=== PATIENT | male | born 1970 | race Caucasian/White ===

== ENCOUNTER → 2017-08-02 | Outpatient (CLI) | payer OTHER ==
[~2017-08-02] MED LIST: CLARITIN PO
--- NOTE | 2017-08-02 20:05 | Diagnostic Imaging Report ---
Left knee MRI without contrast. History: Knee pain. Effusion. Decreased range of motion. Comparison: None. Technique: Multiplanar multi-sequence MRI of the knee without contrast. Findings: Medial compartment: No meniscal tear. Articular cartilage fraying and fissuring in the medial compartment best seen on coronal series 5 image 14. The medial collateral ligament complex is intact. Lateral compartment: No meniscal tear or cartilage abnormality. The LCL complex is normal. Intercondylar notch: The ACL and PCL are intact. Patellofemoral compartment: No chondromalacia or patellar dislocation. Extensor mechanism: Postsurgical change to the inferior patellar tendon. The quadriceps and patellar tendons are intact. Other findings: There is a joint effusion and synovitis. There is no acute fracture, subluxation or avascular necrosis. Small Burch's cyst. 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 No meniscal tear, collateral ligament tear or cruciate ligament tear. Signed by: Dr. Yousuf Rizo M.D. on 08/02/2017 8:01 PM
== END ==
LOC: MRI 16:22
PROVIDERS: ATTEND Orthopaedic Surgery
DX: M25.562 Pain in left knee (principal); M25.462 Effusion, left knee; M22.42 Chondromalacia patellae, left knee

== ENCOUNTER 2018-03-12 10:56 | Emergency (ER) | payer OTHER ==
[~2018-03-12] VITALS: Ht 185.4 cm; Wt 133.8 kg
[2018-03-12] MEDS ORDERED: KETOROLAC TROMETHAMINE 30 MG/ML VIAL IV STA (11:23)
[2018-03-12] MEDS ORDERED: ONDANSETRON HCL INJ 2 MG/ML VIAL IV STA (11:23)
[2018-03-12] MEDS ORDERED: LORAZEPAM INJ 2 MG/ML VIAL IV ONE ×2 (11:30→12:15)
[2018-03-12] MEDS ORDERED: MORPHINE SULFATE 5 MG/ML VIAL IV ONE (11:45)
[2018-03-12] MEDS: SODIUM CHLORIDE 0.9% 1000ML 1,000 ML IV SCH ×2 (12:00→12:51)
[2018-03-12] MEDS ORDERED: MORPHINE SULFATE 2 MG/ML SYR IV STA (12:33)
--- OUTSIDE RECORDS SUMMARY | 2018-03-21 11:25 | XMS REPORT ---
Author Author [facility] Address Unknown Phone Unavailable Care Team Providers Care Music Worker Name Role Phone MARY ANGEL Unavailable Unavailable Problems This patient has no known problems. Allergies, Adverse Reactions, Alerts This patient has no known allergies or adverse reactions. Medications This patient has no known medications. Results Test Description Test Time Test Comments Text Results Atomic Results Result Comments MRI KNEE LEFT WO [place] [address] Patient Name: DARINEL SARABIA MR #: [id number] : 1970 Age/Sex: 47/M Req #: [id number] Adm Physician: Ordered by: MARY ANGEL DO Report #: [id number] Location: MRI Room/Bed: Procedure: [id number] MRI/MRI KNEE LEFT WO Exam Date: Exam Time: REPORT STATUS: Signed Left knee MRI without contrast. History: Knee pain. Effusion. Decreased range of motion. Comparison: None. Technique: Multiplanar multi-sequence MRI of the knee without contrast. Findings: Medial compartment: No meniscal tear. Articular cartilage fraying and fissuring in the medial compartment best seen on coronal series 5 image 14. The medial collateral ligament complex is intact. Lateral compartment: No meniscal tear or cartilage abnormality. The LCL complex is normal. Intercondylar notch: The ACL and PCL are intact. Patellofemoral compartment: No chondromalacia or patellar dislocation. Extensor mechanism: Postsurgical change to the inferior patellar tendon. The quadriceps and patellar tendons are intact. Other findings: There is a joint effusion and synovitis. There is no acute fracture, subluxation or avascular necrosis. Small Burch's cyst. 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 No meniscal tear, collateral ligament tear or cruciate ligament tear. Signed by: Dr. Yousuf Rizo M.D. on 08/02/2017 8:01 PM Dictated By: YOUSUF RIZO MD, MD 00 Transcribed By: WIL on 08/02/172000 COPY TO: MARY ANGEL DO
== END 2018-03-12 13:50 | disposition home or self-care (01) ==
LOC: FSED 10:56
DX: M54.6 Pain in thoracic spine (principal); M62.830 Muscle spasm of back; M62.838 Other muscle spasm; F17.210 Nicotine dependence, cigarettes, uncomplicated
CPT/HCPCS: 80053; 82553; 84484; 85025; 85379; 93005; 99284; J1885; J2060; J2270 ×2; J2405

== ENCOUNTER 2022-02-27 16:23 | Observation (INO) | payer OTHER ==
[~2022-02-27] VITALS: Ht 185.4 cm; Wt 140.6 kg
[2022-02-27] MEDS ORDERED: SODIUM CHLORIDE 0.9% 1000ML 1,000 ML IV STA (16:37)
[2022-02-27] MEDS ORDERED: ASPIRIN 81 MG CHEW TAB PO ONE ×2 (16:45→20:45)
[2022-02-27] MEDS ORDERED: METOPROLOL TARTRATE INJ 1 MG/ML VIAL IV ONE (16:45)
[2022-02-27 16:56] LABS: BASOPHILS # (AUTO) 0.1 (0.0-0.1); BASOPHILS % 0.7 % (0.0-1.0); EOSINOPHILS # (AUTO) 0.2 (0.0-0.4); HEMATOCRIT 50.9 % (38.2-49.6); HEMOGLOBIN 16.9 g/dL (14.0-18.0); LYMPHOCYTES # (AUTO) 2.7 (1.0-3.2); LYMPHOCYTES % 24.1 % (18.0-39.1); MEAN CORPUSCULAR HEMOGLOBIN 30.1 pg (28-32); MEAN CORPUSCULAR HGB CONC 33.2 g/dL (31-35); MEAN CORPUSCULAR VOLUME 90.6 fL (81-99); MONOCYTES # (AUTO) 1.3 (0.2-0.8); MONOCYTES % 11.5 % (4.4-11.3); NEUTROPHILS # (AUTO) 6.8 (2.1-6.9); NEUTROPHILS % 61.3 % (38.7-80.0); PLATELET COUNT 284 x10e3/uL (140-360); RED BLOOD COUNT 5.62 x10e6/uL (4.3-5.7); RED CELL DISTRIBUTION WIDTH 14.6 % (11.7-14.4)
[2022-02-27 17:07] LABS: INR 0.91; PROTHROMBIN TIME 13.1 seconds (11.9-14.5)
[2022-02-27 17:08] LABS: PARTIAL THROMBOPLASTIN TIME 29.2 seconds (23.8-35.5)
[2022-02-27] MEDS ORDERED: METOPROLOL TARTRATE 25 MG TAB PO ONE (17:15)
[2022-02-27 17:16] LABS: ALANINE AMINOTRANSFERASE 27 IU/L (0-55); ALBUMIN 4.5 g/dL (3.5-5.0); ALBUMIN/GLOBULIN RATIO 1.3 (0.8-2.0); ALKALINE PHOSPHATASE 83 IU/L (40-150); ANION GAP 19.7 mmol/L (8-16); BLOOD UREA NITROGEN 11 mg/dL (7-26); BUN/CREATININE RATIO 10 (6-25); CALCIUM 9.7 mg/dL (8.4-10.2); CARBON DIOXIDE 19 mmol/L (22-29); CHLORIDE 106 mmol/L (98-107); CREATINE KINASE 151 IU/L (30-200); CREATININE, SERUM 1.09 mg/dL (0.72-1.25); GLUCOSE 86 mg/dL (74-118); LIPASE 44 U/L (8-78); MAGNESIUM 2.4 MG/DL (1.3-2.1); POTASSIUM 3.7 mmol/L (3.5-5.1); SODIUM 141 mmol/L (136-145)
[2022-02-27 17:35] LABS: THYROID STIMULATING HORMONE 2.484 uIU/mL (0.350-4.940)
[2022-02-27 17:37] LABS: AMPHETAMINES SCREEN,URINE NEGATIVE (NEGATIVE); BENZODIAZEPINES SCREEN,URINE NEGATIVE (NEGATIVE); PHENCYCLIDINE SCREEN,URINE NEGATIVE (NEGATIVE)
[2022-02-27 17:38] LABS: CLARITY,URINE HAZY (CLEAR); COLOR,URINE YELLOW (YELLOW); KETONES,URINE NEGATIVE (NEGATIVE); LEUKOCYTE ESTERASE ,URINE NEGATIVE (NEGATIVE); NITRITE,URINE NEGATIVE (NEGATIVE); PROTEIN,URINE DIPSTICK NEGATIVE (NEGATIVE); URINE UROBILINOGEN 0.2 mg/dL (0.2 - 1)
[2022-02-27 17:39] LABS: BACTERIA,URINE FEW /HPF; EPITHELIAL CELLS,URINE FEW /LPF; RBC,URINE 0-5 /HPF (0-5); WBC,URINE (MAN) 0-5 /HPF (0-5)
[2022-02-27] MEDS ORDERED: IOPAMIDOL 370 MG/ML 100 ML INFUS..BTL INJ ONE ×2 (18:47→19:44)
[2022-02-27 20:00] VITALS: BP 145/93
[2022-02-27] MEDS ORDERED: ONDANSETRON HCL INJ 2MG/ML 2ML 2 MG/ML VIAL IV PRN (20:45)
[2022-02-27 21:44] VITALS: BP 145/93
[2022-02-27 21:50] VITALS: BP 145/93
[2022-02-27 22:04] VITALS: BP 145/93
[2022-02-27] MEDS ORDERED: XOLAIR75 MG/0.5 (22:59)
[2022-02-28] VITALS (7 sets, daily range): BP systolic 105–129; BP diastolic 64–83
[2022-02-28 01:51] LABS: CREATINE KINASE MB 1.8 ng/mL (0-5.0)
[2022-02-28] MEDS ORDERED: OMEPRAZOLE40 MG PO (03:06)
[2022-02-28] MEDS ORDERED: MULTI-VITAMIN1 EACH PO (04:13)
[2022-02-28 05:21] LABS: BASOPHILS # (AUTO) 0.1 (0.0-0.1); BASOPHILS % 0.8 % (0.0-1.0); EOSINOPHILS # (AUTO) 0.3 (0.0-0.4); EOSINOPHILS % 3.1 % (0.0-6.0); HEMATOCRIT 43.9 % (38.2-49.6); HEMOGLOBIN 14.3 g/dL (14.0-18.0); LYMPHOCYTES # (AUTO) 1.9 (1.0-3.2); LYMPHOCYTES % 22.9 % (18.0-39.1); MEAN CORPUSCULAR HEMOGLOBIN 29.9 pg (28-32); MEAN CORPUSCULAR HGB CONC 32.6 g/dL (31-35); MEAN CORPUSCULAR VOLUME 91.8 fL (81-99); MONOCYTES # (AUTO) 1.2 (0.2-0.8); MONOCYTES % 14.1 % (4.4-11.3); NEUTROPHILS # (AUTO) 4.9 (2.1-6.9); NEUTROPHILS % 58.7 % (38.7-80.0); PLATELET COUNT 239 x10e3/uL (140-360); RED BLOOD COUNT 4.78 x10e6/uL (4.3-5.7); RED CELL DISTRIBUTION WIDTH 14.8 % (11.7-14.4)
[2022-02-28 05:41] LABS: ALBUMIN 3.5 g/dL (3.5-5.0); ALBUMIN/GLOBULIN RATIO 1.4 (0.8-2.0); ANION GAP 11.8 mmol/L (8-16); CALCIUM 8.6 mg/dL (8.4-10.2); CREATININE, SERUM 1.02 mg/dL (0.72-1.25); POTASSIUM 3.8 mmol/L (3.5-5.1)
[2022-02-28 06:06] LABS: CREATINE KINASE MB 1.8 ng/mL (0-5.0)
[2022-02-28 10:53] LABS: CHOL/HDL RATIO 3.3 (3.9-4.7)
[2022-02-28 13:47] LABS: CREATINE KINASE 79 IU/L (30-200)
[2022-03-01] VITALS (8 sets, daily range): BP systolic 119–132; BP diastolic 72–90
[2022-03-01 05:48] LABS: BASOPHILS # (AUTO) 0.1 (0.0-0.1); BASOPHILS % 0.7 % (0.0-1.0); EOSINOPHILS # (AUTO) 0.3 (0.0-0.4); EOSINOPHILS % 3.3 % (0.0-6.0); HEMATOCRIT 43.1 % (38.2-49.6); HEMOGLOBIN 14.2 g/dL (14.0-18.0); LYMPHOCYTES # (AUTO) 1.9 (1.0-3.2); LYMPHOCYTES % 24.7 % (18.0-39.1); MEAN CORPUSCULAR HEMOGLOBIN 29.5 pg (28-32); MEAN CORPUSCULAR HGB CONC 32.9 g/dL (31-35); MEAN CORPUSCULAR VOLUME 89.4 fL (81-99); MONOCYTES % 12.9 % (4.4-11.3); NEUTROPHILS # (AUTO) 4.5 (2.1-6.9); NEUTROPHILS % 58.1 % (38.7-80.0); PLATELET COUNT 236 x10e3/uL (140-360); RED BLOOD COUNT 4.82 x10e6/uL (4.3-5.7); RED CELL DISTRIBUTION WIDTH 14.9 % (11.7-14.4)
[2022-03-01 06:12] LABS: ALBUMIN 3.4 g/dL (3.5-5.0); ALBUMIN/GLOBULIN RATIO 1.2 (0.8-2.0); ANION GAP 11.7 mmol/L (8-16); CALCIUM 8.4 mg/dL (8.4-10.2); CREATININE, SERUM 0.98 mg/dL (0.72-1.25); POTASSIUM 3.7 mmol/L (3.5-5.1)
[2022-03-01] MEDS ORDERED: REGADENOSON 0.4 MG/5 ML SYR IV ONE (12:19)
[2022-03-01] MEDS ORDERED: ONDANSETRON HCL 4 MG ORAL DISINTEGRATING TAB PO PRN (15:00)
== END 2022-03-01 15:39 | disposition home or self-care (01) ==
LOC: ER 16:30 → ERHOLD 20:33 → MED/SURG 21:40
DX: R00.2 Palpitations (principal); E66.01 Morbid (severe) obesity due to excess calories; Z68.41 Body mass index [BMI] 40.0-44.9, adult; K21.9 Gastro-esophageal reflux disease without esophagitis; Z72.89 Other problems related to lifestyle; R94.31 Abnormal electrocardiogram [ECG] [EKG]; Z98.84 Bariatric surgery status; Z88.1 Allergy status to other antibiotic agents; Z88.0 Allergy status to penicillin; Z87.891 Personal history of nicotine dependence; J45.909 Unspecified asthma, uncomplicated
CPT/HCPCS: 36415 ×3; 71045; 71260; 78452; 80053 ×3; 80061; 80307; 80320; 81001; 82550 ×2; 82553 ×2; 83690; 83735; 83880; 84443; 84484 ×2; 85025 ×3; 85379; 85610; 85730; 93005 ×2; 93017; 99284; A9502; C9113; G0378 ×3; J2785; J7030; Q9967; U0002

== ENCOUNTER → 2022-05-03 | Day surgery (SDC) | payer OTHER ==
[~2022-05-03] MED LIST changes: +CLARITIN10 MG PO; +GLUCAGON FOR INJ 1 MG VIAL ONE; +LIDOCAINE HCL 2% LOCAL INJ 5 ML SDV VIAL INJ ONE; +MIDAZOLAM HCL 2 MG/2 ML VIAL ONE; +MULTI-VITAMIN1 EACH PO; +OMEPRAZOLE40 MG PO; +PROPOFOL IV EMULSION 10 MG/ML 20 ML VIAL ONE; +PROTONIX20 MG PO; +XOLAIR150 MG IM; +XOLAIR75 MG/0.5
[2022-05-03 12:00] VITALS: BP 108/80
[2022-05-03 13:01] LABS: ALBUMIN 4.2 g/dL (3.5-5.0); ALBUMIN/GLOBULIN RATIO 1.4 (0.8-2.0); CALCIUM 9.1 mg/dL (8.4-10.2); CREATININE, SERUM 1.12 mg/dL (0.72-1.25)
== END | disposition home or self-care (01) ==
LOC: OR 08:10 → MERGE 14:30 → EDBD 14:30
PROVIDERS: ATTEND Internal Medicine Gastroenterology
DX: K29.70 Gastritis, unspecified, without bleeding (principal); D12.2 Benign neoplasm of ascending colon; D12.5 Benign neoplasm of sigmoid colon; I85.00 Esophageal varices without bleeding; K57.30 Diverticulosis of large intestine without perforation or abscess without bleeding; K28.9 Gastrojejunal ulcer, unspecified as acute or chronic, without hemorrhage or perforation; K64.8 Other hemorrhoids; K62.5 Hemorrhage of anus and rectum; K21.9 Gastro-esophageal reflux disease without esophagitis; Z98.84 Bariatric surgery status; Z71.3 Dietary counseling and surveillance; G47.33 Obstructive sleep apnea (adult) (pediatric); J30.2 Other seasonal allergic rhinitis; M26.609 Unspecified temporomandibular joint disorder, unspecified side; Z71.89 Other specified counseling; Z88.1 Allergy status to other antibiotic agents; Z88.0 Allergy status to penicillin; Z01.810 Encounter for preprocedural cardiovascular examination; Z68.41 Body mass index [BMI] 40.0-44.9, adult; Z87.891 Personal history of nicotine dependence
CPT/HCPCS: 36415; 43239; 45380; 45385; 80053; 93005; C9113; J1610; J2001; J2250; J2704; 45378

== ENCOUNTER → 2022-05-12 | Outpatient (CLI) | payer OTHER ==
[~2022-05-12] MED LIST changes: -GLUCAGON FOR INJ 1 MG VIAL ONE; -LIDOCAINE HCL 2% LOCAL INJ 5 ML SDV VIAL INJ ONE; -MIDAZOLAM HCL 2 MG/2 ML VIAL ONE; -PROPOFOL IV EMULSION 10 MG/ML 20 ML VIAL ONE
== END ==
LOC: US 07:14
PROVIDERS: ATTEND Internal Medicine Gastroenterology
DX: K64.9 Unspecified hemorrhoids (principal); K63.5 Polyp of colon; K57.90 Diverticulosis of intestine, part unspecified, without perforation or abscess without bleeding
CPT/HCPCS: 76705